=== PATIENT | male | born 1940 | race Caucasian/White ===

== ENCOUNTER 2016-10-18 11:45 | Day surgery (SDC) | payer MEDICARE, OTHER ==
[~2016-10-18 11:45] MED LIST: DIPHENHYDRAMINE HCL 50 MG/ML VIAL ONE; EPINEPHRINE INJ 1 MG/10 ML DISP.SYRIN ONE; FENTANYL CITRATE INJ/PF 100 MCG/2 ML AMPUL ONE; FLUMAZENIL INJ 0.5 MG/5 ML VIAL IV ONE; GLUCAGON,HUMAN RECOMB 1 MG INJ ONE; NALOXONE HCL INJ/PF 0.4 MG/1 ML SDV ONE; ONDANSETRON HCL INJ/PF 4 MG/2 ML SDV ONE
[2016-10-18] MEDS: MIDAZOLAM 2 MG/2 ML INJ ONE ×2 (12:24→12:30)
--- NOTE | 2016-10-18 12:42 | Operative Report ---
Operative Report DATE OF SURGERY: 10/18/16 Operative Report: The risks, benefits and alternatives of the procedure including risks of bleeding, perforation requiring surgery are explained to the patient in detail and informed consent is obtained. Patient was taken back to the endoscopy suite and placed in the left, lateral decubital position. Timeout was called. Conscious sedation medications are provided. A rectal examination is done which did not reveal any masses, tears or fissures. An Olympus video scope was inserted into the patient's rectum the scope was then carefully guided all the way to the cecum. The cecum was identified by the usual anatomical landmarks including the ileocecal valve as well as the appendiceal office. Photodocumentation is obtained prep is good. The scope was then sequentially pulled back via the various segments of the colon including the ascending colon , hepatic flexure, transverse colon, splenic flexure, descending colon and finding to the rectosigmoid portions of the colon. Retroflexion maneuver was performed. PREOPERATIVE DIAGNOSIS: Personal history of polyps POSTOPERATIVE DIAGNOSIS: Colon polyp that was removed via snare polypectomy in the descending colon. Internal hemorrhoids OPERATION: Colonoscopy with snare polypectomy SURGEON: NEHAL AGUILAR ANESTHESIA: Moderate Sedation - 4 mg of Versed, 50 mcg of fentanyl. Conscious sedation monitoring time 30 minutes. TISSUE REMOVED OR ALTERED: Polyp was retrieved. COMPLICATIONS: None. ESTIMATED BLOOD LOSS: None. INTRAOPERATIVE FINDINGS: As noted above. PROCEDURE: Patient tolerated the procedure well. Immediate postprocedure complications are noted. Patient discharged in good condition. Discharge date 10/18/2016. Discharge diet: Regular. Discharge activity: Regular. Patient is instructed to call the office or proceed to the emergency room should there be any further problems or questions. 2-3 week follow-up to discuss findings. 5 year surveillance colonoscopy. We will wait on pathology.
[2016-10-18 13:47] VITALS: BP 122/71
== END 2016-10-18 13:45 | disposition home or self-care (01) ==
LOC: END 11:45
PROVIDERS: ATTEND Internal Medicine Gastroenterology
PROC: 0DBM8ZX Excision of Descending Colon, Via Natural or Artificial Opening Endoscopic, Diagnostic (ICD-10-PCS; principal; 2016-10-18 12:30)
DX: Z12.11 Encounter for screening for malignant neoplasm of colon (principal); D12.4 Benign neoplasm of descending colon; K64.8 Other hemorrhoids
CPT/HCPCS: 45385; 88305 ×2; J2250; J3010; J0171; J1200; J1610; J2310; J2405; J3490

== ENCOUNTER → 2019-03-09 | Outpatient (CLI) | payer MEDICARE, OTHER ==
[2019-03-09 10:34] LABS: ALBUMIN 4.3 g/dL (3.5-5.0); ALKALINE PHOSPHATASE 88 U/L (38-126); ANION GAP 11 (5-19); ASPARTATE AMINO TRANSFERASE 30 U/L (17-59); BILIRUBIN,DIRECT 0.2 mg/dL (0.0-0.4); BILIRUBIN,TOTAL 1.3 mg/dL (0.2-1.3); BLOOD UREA NITROGEN 19 mg/dL (7-20); CALCIUM 9.9 mg/dL (8.4-10.2); CARBON DIOXIDE 27 mmol/L (22-30); CHLORIDE 104 mmol/L (98-107); CHOLESTEROL 190.88 mg/dL (0-200); CREATINE KINASE 47 U/L (55-170); GLUCOSE 118 mg/dL (75-110); TOTAL PROTEIN 7.4 g/dL (6.3-8.2); TRIGLYCERIDES 104 mg/dL (<150)
[2019-03-09 10:50] LABS: DIRECT LDL 99 mg/dL (<100)
== END ==
LOC: OD 09:45
PROVIDERS: ATTEND Family Medicine
DX: E78.5 Hyperlipidemia, unspecified (principal); R73.9 Hyperglycemia, unspecified
CPT/HCPCS: 36415; 80053; 80061; 82550; 83036; 84443

== ENCOUNTER → 2019-11-05 | Outpatient (CLI) | payer MEDICARE, OTHER ==
[2019-11-05 14:52] LABS: FREE T3 3.18 pg/mL (2.77-5.27); FREE T4 (FREE THYROXINE) 1.18 ng/dL (0.78-2.19)
[2019-11-05 15:06] LABS: THYROID STIMULATING HORMONE 1.03 uIU/mL (0.47-4.68)
[2019-11-05 15:51] LABS: FOLATE > 20.00 ng/mL (>2.76)
== END ==
LOC: OD 12:36
PROVIDERS: ATTEND Specialist
DX: D51.9 Vitamin B12 deficiency anemia, unspecified (principal); R41.3 Other amnesia; R26.81 Unsteadiness on feet
CPT/HCPCS: 36415; 82607; 82746; 84439; 84443; 84481